=== PATIENT | male | born 1975 | race Two or more races ===

== ENCOUNTER 2020-09-01 23:53 | Emergency (ER) | payer MEDICAID ==
[~2020-09-01] VITALS: Ht 165.1 cm; Wt 83.9 kg
[2020-09-02 00:47] VITALS: BP 129/80
== END 2020-09-02 01:50 | disposition home or self-care (01) ==
LOC: ER 09-02
DX: I10 Essential (primary) hypertension (principal); H52.10 Myopia, unspecified eye; E07.9 Disorder of thyroid, unspecified